=== PATIENT | female | born 1960 | race Caucasian/White ===

== ENCOUNTER → 2019-04-01 | Outpatient (CLI) | payer BC ==
--- NOTE | 2019-04-01 14:13 | REP ---
LEFT FINGERS, FOUR VIEWS: HISTORY: Foreign body. There is no acute fracture or dislocation. The joint spaces are normal in appearance. An osteophyte is present on the distal phalange of the third digit. There is no radiopaque foreign body. IMPRESSION: There is no radiopaque foreign body. Electronically Signed by Johnny Jarvis MD 04/01/2019 02:41 P
== END ==
LOC: M WUC 11:39
PROVIDERS: ATTEND Physician Assistant
DX: L03.012 Cellulitis of left finger (principal)